=== PATIENT | male | born 1950 | race Caucasian/White ===

== ENCOUNTER 2023-09-18 09:34 | Outpatient (RCR) | payer OTHER, SELFPAY | END 2023-09-18 23:59 | disposition home or self-care (01) | LOC: CRHB 09:34 | PROVIDERS: ATTENDING PHYSICIAN Internal Medicine Cardiovascular Disease | DX: I25.10 Atherosclerotic heart disease of native coronary artery without angina pectoris (principal); Z95.5 Presence of coronary angioplasty implant and graft; I25.2 Old myocardial infarction | CPT/HCPCS: G0422; G0423 ==

== ENCOUNTER 2023-10-18 08:39 | Outpatient (RCR) | payer OTHER, SELFPAY | END 2023-10-18 23:59 | disposition home or self-care (01) | LOC: CRHB 08:39 | PROVIDERS: ATTENDING PHYSICIAN Internal Medicine | DX: I25.10 Atherosclerotic heart disease of native coronary artery without angina pectoris (principal); Z95.5 Presence of coronary angioplasty implant and graft; I25.2 Old myocardial infarction | CPT/HCPCS: G0422; G0423 ==

== ENCOUNTER 2023-11-06 13:00 | Outpatient (RCR) | payer OTHER, SELFPAY | END 2023-11-06 23:59 | disposition home or self-care (01) | LOC: CRHB 13:00 | PROVIDERS: ATTENDING PHYSICIAN Internal Medicine; FAMILY PHYSICIAN Internal Medicine | DX: I25.2 Old myocardial infarction (principal); Z95.5 Presence of coronary angioplasty implant and graft; I25.10 Atherosclerotic heart disease of native coronary artery without angina pectoris | CPT/HCPCS: G0422; G0423 ==